=== PATIENT | female | born 1950 | race Caucasian/White ===

== ENCOUNTER 2023-08-03 02:42 | Day surgery (SDC) | payer MEDICARE, SELFPAY ==
[2023-07-25 10:39] VITALS: BMI 23.8
[2023-08-03 10:03] VITALS: BP 141/75; PULSE 82; RESP 20; TEMP 36.1; O2SAT 98; BMI 23.1
[2023-08-03] MEDS: LACTATED RINGERS 1,000 ML 150 ML IV CONT (10:05)
--- NOTE | 2023-08-03 10:43 | WPDHPUPDATE1 ---
History and Physical Update Update Date/Time: 08/03/23 10:43 History and Physical has been reviewed, including an updated exam of the patient. There are NO changes in the patient's condition. Risks, benefits, and alternatives have been discussed and questions answered. Patient agrees to proceed with procedure.
--- NOTE | 2023-08-03 10:50 | SUR.OPER ---
EGD: 2022-9341 COLON: Start 1100
[2023-08-03 11:28] VITALS: BP 119/65; PULSE 86; RESP 20; O2SAT 98
[2023-08-03 11:38] VITALS: BP 104/77; PULSE 84; RESP 18; O2SAT 98
[2023-08-03 11:48] VITALS: BP 115/75; PULSE 70; RESP 18; O2SAT 100
== END 2023-08-03 11:56 | disposition home or self-care (01) ==
PROVIDERS: PCP Emergency Medicine; Visit Provider Internal Medicine Gastroenterology
PROC: 0DJ08ZZ Inspection of Upper Intestinal Tract, Via Natural or Artificial Opening Endoscopic (ICD-10-PCS; CPT 43235; principal; 2023-08-03 11:00)
DX: Z12.11 Encounter for screening for malignant neoplasm of colon (principal); K57.30 Diverticulosis of large intestine without perforation or abscess without bleeding; D12.3 Benign neoplasm of transverse colon; K63.5 Polyp of colon; K64.8 Other hemorrhoids; Z80.0 Family history of malignant neoplasm of digestive organs; K22.2 Esophageal obstruction; K44.9 Diaphragmatic hernia without obstruction or gangrene; K31.89 Other diseases of stomach and duodenum; K21.9 Gastro-esophageal reflux disease without esophagitis; E78.5 Hyperlipidemia, unspecified; E03.9 Hypothyroidism, unspecified; E55.9 Vitamin D deficiency, unspecified; L40.9 Psoriasis, unspecified
CPT/HCPCS: 45381; 45385; 43249; 43239; 88305; C1726; J2001; J2704; J7120